=== PATIENT | female | born 1990 | race Caucasian/White ===

== ENCOUNTER 2025-03-19 14:25 | Outpatient (CLI) | payer OTHER, MEDICAID, SELFPAY ==
--- OUTSIDE RECORDS SUMMARY | 2025-01-30 03:30 | XMS_ITS ---
[facility] Organization [facility] Address [address] [place] [address] Care Team Providers Care Flute Teacher Name Role Phone Jovan Lawler Primary Care Provider REASON FOR VISIT f/u Social History Sex Assigned At : Social History Observation Description Sex Assigned At Female Encounters Encounter Location Date Provider Diagnosis [address] [place] [address] 01/30/2025 Jovan Lawler Plan Of Treatment No Information Progress Notes * Cecilia MARSHALLDOB: 9 (34 yo F)Acc No.[id number]:01/30/2025 UNLOCKED PROGRESS NOTE Patient: Cecilia CABRAL Provider: Deric Lawler :1990 A ge:34 Y S ex:Female Date:01/30/2025 Address:[address] [place] [address], [facility] Subjective: * Chief Complaints: * 1 . F/u. * Medical History: Objective: * Vitals: Assessment: Plan: * Treatment: * * Electronic signature of Jovan Lawler MD, [id number] on 03/19/2025 at 05:22 PM CDT Sign off status: Pending * Provider: Deric Lawler Date: 01/30/2025 Generated for Mars parra/Dayana/eTransmitting on: 0 03/19/2025 05:22 PM CDT
--- OUTSIDE RECORDS SUMMARY | 2025-02-27 05:10 | XMS_ITS ---
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 Name Role Phone Jovan Lawler Primary Care Provider REASON FOR VISIT 4 week F/U Social History Sex Assigned At : Social History Observation Description Sex Assigned At Female Encounters Encounter Location Date Provider Diagnosis [address] [place] [address] 02/27/2025 Jovan Lawler Plan Of Treatment No Information Progress Notes * Cecilia MARSHALLDOB: [birth year] (34 yo F)Acc No.[id number]:02/27/2025 UNLOCKED PROGRESS NOTE Patient: Cecilia CABRAL Provider: Deric Lawler :1990 A ge:34 Y S ex:Female Date:02/27/2025 Address:[address] [place] [address], [facility] Subjective: * Chief Complaints: * 1 . 4 week F/U. * Medical History: Objective: * Vitals: Assessment: Plan: * Treatment: * * Electronic signature of Jovan Lawler MD, [id number] on 03/19/2025 at 05:22 PM CDT Sign off status: Pending * Provider: Deric Lawler Date: 02/27/2025 Generated for Mars parra/Dayana/eTransmitting on: 0 03/19/2025 05:22 PM CDT
--- OUTSIDE RECORDS SUMMARY | 2025-03-06 04:10 | XMS_ITS ---
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 Name Role Phone Jovan Lawler Primary Care Provider [phone] REASON FOR VISIT 02/22/2025 Social History Sex Assigned At : Social History Observation Description Sex Assigned At Female Encounters Encounter Location Date Provider Diagnosis [address] [place] [address] 03/06/2025 Jovan Lawler Plan Of Treatment No Information Progress Notes * Cecilia MARSHALLDOB: [birth year] (34 yo F)Acc No.[id number]:03/06/2025 UNLOCKED PROGRESS NOTE Patient: Cecilia CABRAL Provider: Deric Lawler :1990 A ge:34 Y S ex:Female Date:03/06/2025 Address:[address] [address], [facility] Subjective: * Chief Complaints: * 1 . 02/22/2025. * Medical History: Objective: * Vitals: Assessment: Plan: * Treatment: * * Electronic signature of Jovan Lawler MD, [id number] on 03/19/2025 at 05:22 PM CDT Sign off status: Pending * Provider: Deric Lawler Date: 03/06/2025 Generated for Mars parra/Dayana/eTransmitting on: 03/19/2025 05:22 PM CDT
[2025-03-19 15:06] LABS: Hematocrit 34.0 % (37.0-47.0); Hemoglobin 11.7 g/dL (12.0-15.0); Immature Granulocyte Percent A 0.6 % (0-0.5); Lymphocytes Absolute Auto 2.42 K/mm3 (0.9-3.2); Mean Corpuscular HGB Conc 34.4 g/dl (32-36); Mean Corpuscular Hemoglobin 30.5 pg (26-34); Mean Corpuscular Volume 88.8 fl (80-100); Nucleated Red Blood Cells Absolute Auto 0.000 K/mm3 (0.0-0.012); Nucleated Red Blood Cells Perc 0.0 % (0.0-0.2); Platelet Count Result 204 k/mm3 (150-375); Red Blood Count 3.83 M/mm3 (4.2-5.4); White Blood Count 10.4 K/mm3 (4.5-10.0)
[2025-03-19 15:50] LABS: Syphilis IgG/IgM Antibody Non-Reactive (Nonreactive)
[2025-03-19 15:53] LABS: Hepatitis B Surface Antigen Negative (Negative)
[2025-03-19 16:02] LABS: HIV 1/2 Ab P24 Ag Result Negative (Negative)
[2025-03-19 16:06] LABS: Beta HCG Quantitative 47710.00 mIU/ML
--- OUTSIDE RECORDS SUMMARY | 2025-03-19 17:22 | XMS_ITS | Clinical Summary ---
Author Organization [facility] Address [address] [address] Phone Care Team Providers Care Metal Room Dental Technician Name Role Phone Unavailable Primary Care Provider Unavailabl e Allergies Active Allergy Reactions Criticality Noted Date Comments Sulfamethoxazole-Trimethoprim Unknown 2016 Social History Tobacco Use Types Packs/Day Years Used Date Smoking Tobacco: Every Day Cigarettes Comments No Sex and Gender Information Value Date Recorded Sex Assigned at Not on file Legal Sex Female 5:25 PM CDT Gender Identity Not on file Sexual Orientation Not on file Last Filed Vital Signs Vital Sign Reading Time Taken Comments Blood Pressure 114/86 11/07/2016 5:34 PM CDT Pulse - - Temperature 36.9 C (98.4 F) 11/07/2016 5:34 PM CDT Respiratory Rate 14 11/07/2016 5:34 PM CDT Oxygen Saturation 99% 11/07/2016 5:34 PM CDT Inhaled Oxygen Concentration - - Weight 49.9 kg (110 lb) 11/07/2016 5:34 PM CDT Height 157.5 cm (5' 2) 11/07/2016 5:34 PM CDT Body Mass Index 20.12 11/07/2016 5:34 PM CDT Plan of Treatment Health Maintenance Due Date Last Done Comments DTAP/TDAP/TD VACCINES (1 - Tdap) 2008 HEPATITIS B VACCINES (1 of 3 - 19+ 3-dose series) 04/05 HPV/Cotest (21-29) 2010 HPV VACCINES (1 - 3-dose SCDM series) 2016 CERVICAL CANCER SCREENING 2019 HPV/Cotest (30-65) 2019 PAP SMEAR 2019 INFLUENZA VACCINE (#1) 2025
--- OUTSIDE RECORDS SUMMARY | 2025-03-19 17:22 | XMS_ITS | Patient Health Record ---
Author Organization [facility] Address [address] [place] [address] Care Team Providers Care Director Work Name Role Phone Jovan Lawler Primary Care Provider [phone]jillo [phone] Allergies Allergen (clinical drug ingredient) Drug/Non Drug Allergy documented on EMR Reaction Allergy Type Onset Date Status Substance with sulfonamide structure and antibacterial mechanism of action (substance) Sulfa Antibiotics Unknown Drug Allergy Active Reason For Referral No Information Medications Medication SIG (Take, Route, Frequency, Duration) Notes Start Date End Date Status Benztropine Mesylate 1 MG 1 tablet Oral Once a day; Duration: 30 days Active hydrOXYzine Pamoate 25 MG 1 capsule at bedtime as needed Oral four times a day; Duration: 30 days Active FLUoxetine HCl 20 MG 1 capsule with 10 m g. TOTAL dose is 30 mg daily Oral Once a day; Duration: 30 days Active FLUoxetine HCl 10 MG 1 capsule with 20 m g. Total dose is 30 mg a day Orally Once a day; Duration: 30 days Active Nystatin 682726 UNIT/ML Mouth/Throat; Du ration: 15 Days Not-Taking OLANZapine 10 MG 1 tablet Orally Once a day; Duration: 30 days 01/30/2025 Active Loratadine 10 MG TAKE 1 TABLET BY DEVORA TH EVERY DAY Oral; Duration: 30 Days Not-Taking Abilify Maintena 400 MG as directed Intr amuscular monthly; Duration: 30 days Not-Taking Social History Tobacco Use: Social History Observation Description Date Details (start date - stop date) Never Smoker NA - NA Sex Assigned At : Social History Observation Description Sex Assigned At Female Tobacco Control (Standard) Question Answer Notes Tobacco use: Nonsmoker Problems Problem Type SNOMED Code ICD Code Onset Dates Problem Status W/U Status Risk Notes Problem Intestinal infectious disease (240798182) Contact with and (suspected) exposure to other communicable diseases (Z20.89) Active confirmed Problem Posttraumatic stress disorder (69282197) PTSD (post-traumatic stress disorder) (F43.10) Active confirmed Problem Generalized anxiety disorder (12055300) MICHELINE (generalized anxiety disorder) (F41.1) Active confirmed Problem Bipolar disorder (65345719) Bipolar disorder (F31.9) Active confirmed Problem Overweight (829147213) Over weight (E66.3) Active confirmed Vital Signs Heart Rate 78 /min 10/31/2024 Respiratory Rate 16 /min 06/13/2024 Blood pressure diastolic 76 mm Hg 10/31/2024 Oximetry 98 % 10/31/2024 Height 62 in 10/31/2024 Blood pressure systolic 122 mm Hg 10/31/2024 Weight 137 lb 4 oz lbs 10/31/2024 BMI 25.1 kg/m2 10/31/2024 Encounters Encounter Location Date Provider Diagnosis [address] [address] 06/13/2024 Arif Habib Bipolar disorder F31 .9 ; MICHELINE (generalized anxiety disorder) F41.1 and PTSD (post-traumatic stress disorder) F43.[address] [address] 07/11/2024 Arif Habib MICHELINE (generalized anxiety disorder) F41.1 ; Bipolar disorder F31.9 and PTSD (post-traumatic stress disorder) F43.[address] [address] 10/10/2024 Arif Habib Over weight E66.3 ; MICHELINE (generalized anxiety disorder) F41.1 ; Bipolar disorder F31.9 and PTSD (post-traumatic stress disorder) F43.[address] [address] 10/31/2024 Arif Habib Bipolar disorder F31 .[address] [address] 01/30/2025 Arif Habib Bipolar disorder F31 .[address] [place] [address] 08/30/2024 Ari Habib [address] [address] 10/10/2024 Rogerio Trujillo Contact with and (suspected) exposure to other communicable diseases Z20.[address] [address] 10/30/2024 Arif Habib [address] [address] 01/30/2025 Ari Habib [address] [address] 01/30/2025 [facility] Assessments Encounter Date Diagnosis (ICD Code) Assessment Notes Treatment Notes Treatment Clinical Notes Section Notes 06/13/2024 MICHELINE (generalized anxiety disorder) (ICD-10 - F41.1) 06/13/2024 Bipolar disorder (ICD-10 - F31.9) DX & TX options discussed. Continue discharge medications. Side effects discussed. Advised to start long acting injection because history of non compliance. Pt agreed Abilify Maint 400 mg monthly. 07/11/2024 MICHELINE (generalized anxiety disorder) (ICD-10 - F41.1) 10/10/2024 Over weight (ICD-10 - E66.3) 10/10/2024 Contact with and (suspected) exposure to other communicable diseases (ICD-10 - Z20.89) 10/31/2024 Bipolar disorder (ICD-10 - F31.9) DX & TX options discussed. Continue oral medications. Side effects discussed. 01/30/2025 Bipolar disorder (ICD-10 - F31.9) DX & TX options discussed. Continue oral medications. Side effects discussed. Stop Abilify due to in surance .Lower Abilify half of 30 mg daily. She has few left at home. Start Zyprexa 10 mg HS. Side effects discussed. 07/11/2024 Bipolar disorder (ICD-10 - F31.9) DX & TX options discussed. Continue oral medications. Side effects discussed. Pt is refusing long acting injection ,Abilify Maint 400 mg monthly. She is moving to [place] next week. I gave her 3 months refills. She will find new provider in [place]. 10/10/2024 MICHELINE (generalized anxiety disorder) (ICD-10 - F41.1) 06/13/2024 PTSD (post-traumatic stress disorder) (ICD-10 - F43.10) 10/10/2024 Bipolar disorder (ICD-10 - F31.9) DX & TX options discussed. Continue oral medications. Side effects discussed. Increase Prozac 30 mg daily for depression. Continue Abilify 30 mg daily. She takes Cogentin 1 mg a day and she has refills at home. Takes Vistaril occasionally. 07/11/2024 PTSD (post-traumatic stress disorder) (ICD-10 - F43.10) 10/10/2024 PTSD (post-traumatic stress disorder) (ICD-10 - F43.10) Plan Of Treatment No Information Medical (General) History Medical History History ICD Code depression asthma anxiety Surgical History Surgery Date(Month/Year) anal reconstruction Hospitalization History Reason Date(Month/Year) [facility]
[2025-03-20 07:09] LABS: Cytomegalovirus (CMV) Ab, IgG >10.00 U/mL (0.00-0.59)
[2025-03-20 15:09] LABS: Varicella-Zoster Ab, IgG Reactive (Non Reactive); Varicella-Zoster Ab, IgM <0.91 index (0.00-0.90)
[2025-03-22 15:09] LABS: Parvovirus B19, IgG 3.4 index (0.0-0.8); Parvovirus B19, IgM 0.2 index (0.0-0.8)
== END 2025-03-19 14:26 | disposition home or self-care (01) ==
LOC: ANHLAB 14:28
PROVIDERS: Visit Provider Obstetrics & Gynecology
DX: N91.2 Amenorrhea, unspecified (principal)
CPT/HCPCS: 36415; 84702; 85025; 86593; 86644; 86703; 86747; 86762; 86787; 86850; 86900; 86901; 87086; 87340; G0432